=== PATIENT | female | born 1990 ===

== ENCOUNTER 2017-05-13 09:51 | Emergency (ER) | payer SELFPAY ==
[2017-05-13 10:05] VITALS: PULSE 64
--- NOTE | 2017-05-13 10:48 | C.PDOC ---
History Of Present Illness 05/13/2017 Ivette Lovelace is a 26 year old female, who presents to the emergency department complaining of left eyelid pain since yesterday afternoon. Patient reports the pain began yesterday and eventually her eyelid became swollen to the point of closing her eye shut. Patient notes recently having a burning sensation in her eye and watery discharge. Patient denies any fever, headache, vision changes, nausea, vomiting, or other complaints. Patient denies trauma or taking any medication for relief of pain. Time Seen by Provider: 05/13/17 10:16 Chief Complaint (Nursing): Eye Problem History Per: Patient History/Exam Limitations: no limitations Onset/Duration Of Symptoms: Days (1 day) Current Symptoms Are (Timing): Worse Injury To Eye?: No Wears Contact Lens?: No Associated Symptoms: Pain, Swelling, Discharge From Eye. denies: Decreased Vision Past Medical History Reviewed: Historical Data, Nursing Documentation, Vital Signs Vital Signs: Last Vital Signs Temp 98.1 F 05/13/17 12:19 Pulse 64 05/13/17 12:19 Resp 14 05/13/17 12:19 BP 114/74 05/13/17 12:19 Pulse Ox 99 05/16/17 05:43 Family History: States: Unknown Family Hx - Social History Hx Alcohol Use: No Hx Substance Use: No - Immunization History Hx Tetanus Toxoid Vaccination: No Hx Influenza Vaccination: Yes Hx Pneumococcal Vaccination: No Review Of Systems Constitutional: Negative for: Fever Eyes: Positive for: Pain, Eyelid Inflammation, Other (watery discharge). Negative for: Vision Change Respiratory: Negative for: Cough Gastrointestinal: Negative for: Nausea, Vomiting Neurological: Negative for: Headache Physical Exam - Physical Exam Appears: Well, Non-toxic, No Acute Distress Skin: Normal Color, Warm, Dry Head: Atraumatic, Normacephalic Eye(s): bilateral: Normal Inspection, PERRL, EOMI, left: Eyelid Inflammation, Other (watery discharge, chemosis to lateral aspect left conjunctiva) Throat: No Erythema Neck: Normal ROM, No Midline Cervical Tenderness, Supple Lymphatic: No Adenopathy Neurological/Psych: Oriented x3, Normal Speech, Normal Cognition ED Course And Treatment - Laboratory Results Result Diagrams: 05/13/17 10:59 05/13/17 10:59 O2 Sat by Pulse Oximetry: 99 (room air) Pulse Ox Interpretation: Normal Medical Decision Making Medical Decision Makin05/13/2017 Impression: 26 year old female with left eye chemosis of conjunctiva and watery discharge. Plan: -- Labs -- Reassess and disposition [address] Worthington; will put pt on tobradex and augmentin; pt to f/u with him on Sun, allowing time for medication to work; pt started on meds in ED and given instructin on how to use ointment for eye. pt understands treatment plan. Disposition Discussed With Dr.: Khanh Worthington Doctor Will See Patient In The: Office Counseled Patient/Family Regarding: Studies Performed, Diagnosis, Need For Followup, Rx Given - Disposition Referrals: Khanh Worthington MD [Staff Provider] - Disposition: HOME/ ROUTINE Disposition Time: 12:49 Condition: STABLE Additional Instructions: Aplique larisa pequea cantidad (cinta de aproximadamente 1/2 pulgada) en el (los) saco (s) conjuntivales cuatro veces al da. Poultry Trimmer aplicar TOBRADEX (pomada oftlmica de tobramicina y dexametasona): Incline la annia hacia atrs. Coloque un dedo en peres mejilla deepthi debajo de peres edwina y suavemente tire hacia abajo hasta que un bolsillo "V" se forma entre peres globo ocular y peres tapa inferior. Coloque larisa pequea cantidad (aproximadamente pulgada) de TOBRADEX (pomada oftlmica y dexametasona ungento oftlmico) en el bolsillo "V". No deje que la punta del tubo toque peres edwina. Norma hacia abajo antes de cerrar el edwina. Manteo los antibiticos por la boca segn lo prescrito. Seguimiento con el Dr. Worthington el mircoles; geoffrey si los sntomas empeoran, se desarrolla naresh orlando cambio en la visin, ms guidry de la smiley, volver a ER. Prescriptions: Amoxicillin/Clavulanate [Augmentin 875 MG-125 MG] 1 tab PO BID #14 tab Instructions: Conjunctivitis (ED) Forms: [facility] (Greenlandic), Gen Discharge Inst Greenlandic Print Language: PASHTO - Clinical Impression Clinical Impression: Conjunctivitis - Scribe Statement The provider has reviewed the documentation as recorded by the Scribe 05/13/2017 Scribe Attestation: Lela Aponte MD Scribe Attestation: All medical record entries made by the Scribe were at my direction and personally dictated by me. I have reviewed the chart and agree that the record accurately reflects my personal performance of the history, physical exam, medical decision making, and the department course for this patient. I have also personally directed, reviewed, and agree with the discharge instructions and disposition.
[2017-05-13 11:03] LABS: BASO % 0.5 % (0.0-2.0); EOS % 0.3 % (0.0-4.0); HEMATOCRIT 40.6 % (34.0-47.0); LYMPH # 1.5 K/uL (1.0-4.3); LYMPH % 16.4 % (20.0-40.0); MEAN CORPUSCULAR HEMOGLOBIN 30.8 pg (27.0-31.0); MEAN CORPUSCULAR HGB CONC 34.1 g/dL (33.0-37.0); MEAN PLATELET VOLUME 8.8 fL (7.2-11.7); MONO # 0.6 K/uL (0.0-0.8); MONO % 6.8 % (0.0-10.0); RED CELL DISTRIBUTION WIDTH 13.5 % (11.5-14.5)
[2017-05-13 11:06] LABS: MEAN CELL VOLUME 90.4 fL (81.0-99.0); WHITE BLOOD COUNT 9.2 K/uL (4.8-10.8)
[2017-05-13 11:10] LABS: CHLORIDE 106 mmol/L (98-107); POTASSIUM 4.2 mmol/L (3.6-5.2); SODIUM 142 mmol/L (132-148)
[2017-05-13 11:13] LABS: BLOOD UREA NITROGEN 13 mg/dL (7-17); CARBON DIOXIDE 22 mmol/L (22-30); GFR AFRICAN-AMERICAN > 60; GLUCOSE,RANDOM 92 mg/dL (65-105)
[2017-05-13] MEDS ORDERED: Amoxicillin-Clav 500-125 mg Tab PO STA (12:11)
[2017-05-13 12:20] VITALS: BP 114/74; RESP 14; TEMP 98.1
[2017-05-13] MEDS ORDERED: Amoxicillin-Clav 875-125 mg Tab PO ONE (12:37)
[2017-05-13] MEDS ORDERED: Amoxicillin-Clav 500-125 mg Tab PO ONE (12:38)
[2017-05-13 12:51] VITALS: O2SAT 99
[2017-05-13] MEDS ORDERED: Tobramycin/Dexamethasone OPHT OINT OD SCH (14:00)
== END 2017-05-13 13:06 | disposition home or self-care (01) ==
LOC: C.ER 09:51
DX: H10.9 Unspecified conjunctivitis (principal)